=== PATIENT | female | born 1930 | race Caucasian/White ===

== ENCOUNTER 2016-11-27 12:50 | Emergency (ER) | payer OTHER ==
[~2016-11-27] VITALS: Ht 162.6 cm; Wt 69.0 kg
[2016-11-27 13:05] VITALS: TEMP 36.9
[2016-11-27 13:23] VITALS: O2SAT 97
[2016-11-27] MEDS ORDERED: SODIUM CHLORIDE 0.9% 1000ML 1,000 ML IV STA (13:28)
[2016-11-27] MEDS ORDERED: ONDANSETRON INJ 2 MG/ML 2 ML VIAL IV STA (13:28)
[2016-11-27] MEDS ORDERED: SODIUM CHLORIDE 0.9% 500ML 500 ML IV STA ×2 (13:28→14:40)
[2016-11-27 13:47] LABS: BASO % 0.1 %; BASO ABS # 0.01 K/uL (0-0.2); COMPLETE YES; EOS % 0.1 %; HEMATOCRIT 45.4 % (37-47); IG% 0.2 %; LYMPH % 1.7 %; LYMPH ABS # 0.19 K/uL (1.2-3.4); MEAN CELL VOLUME 93.8 fL (80-100); MEAN CORPUSCULAR HGB CONC 34.1 g/dl (32-36); MEAN PLATELET VOLUME 10.6 fL (7.4-10.4); MONO % 2.9 %; PLATELET COUNT 207 K/uL (130-400); RED BLOOD COUNT 4.84 M/uL (4.2-5.4); WHITE BLOOD COUNT 11.41 K/uL (4.8-10.8)
[2016-11-27] MEDS ORDERED: SIMV40TA2 PO (14:06)
[2016-11-27] MEDS ORDERED: ASPI81TA28 PO (14:34)
[2016-11-27] MEDS ORDERED: MULT-190 PO (14:34)
[2016-11-27] MEDS ORDERED: CHOL400T PO (14:34)
[2016-11-27] MEDS ORDERED: METO50TA7 PO (14:34)
[2016-11-27] MEDS ORDERED: MULT-506 PO (14:34)
[2016-11-27] MEDS ORDERED: LUTE40CA2 PO (14:34)
[2016-11-27 14:47] LABS: ALT/SGPT 23 U/L (12-78); BLOOD UREA NITROGEN 25 mg/dl (7-18); BUN/CREATININE RATIO 26.3 (10-20); CALCIUM 8.8 mg/dl (8.5-10.1); CARBON DIOXIDE 24 mmol/L (21-32); CHLORIDE 108 mmol/L (98-107); CREATININE 0.94 mg/dl (0.60-1.20); GLUCOSE 163 mg/dl (70-99); SODIUM 141 mmol/L (136-145)
[2016-11-27 14:51] VITALS: Ht 162.6 cm; Wt 69.0 kg
[2016-11-27 15:03] LABS: ALKALINE PHOSPHATASE 66 U/L (45-117)
[2016-11-27 15:09] LABS: URINE APPEARANCE CLOUDY (CLEAR); URINE BILIRUBIN NEG (NEG); URINE COLOR DK YELLOW; URINE EPITHELIAL CELL AUTO 20-30 /lpf (0-5); URINE NITRITE NEG (NEG); URINE SPECIFIC GRAVITY 1.028 (1.000-1.030); UROBILINOGEN NEG (NEG)
[2016-11-27 15:10] LABS: MANUAL MICROSCOPIC REQUIRED? NO; REVIEW REQ? NO
[2016-11-27 15:34] LABS: POTASSIUM 3.8 mmol/L (3.5-5.1)
[2016-11-27 15:43] LABS: AST/SGOT 19 U/L (15-37); CKMB/CK RATIO 1.6 (0-3.0)
[2016-11-27] MEDS ORDERED: ONDANSETRON HOME PACK 4MG OD TAB PO ONE (16:45)
[2016-11-27 16:56] VITALS: BP 110/60; PULSE 81; O2SAT 96
--- NOTE | 2016-11-27 18:01 | EMERGENCY ROOM VISIT NOTE ---
History Report prepared by Edwardo: Corona Preston Under the Supervision of: Dr. Dilshad Mercado M.D. First contact with patient: 12:55 Chief Complaint: VOMITING Stated Complaint: NAUSEA Nursing Triage Summary: pt reports she had lunch yesterday of shrimp byrne and rice last night during sleep awoke with vomiting, diarrhea, and nausea. last episode at approx 1130 this am. pt reports feeling fine now History of Present Illness The patient is a 85 year old female who presents to the Emergency Room with complaints of persistent nausea, vomiting, diarrhea. She thinks it may have been from her shrimp byrne last night. She woke this morning at 0100 with N/V/ D. She was able to fall asleep but woke again with a total of 10 episodes of vomiting and diarrhea. She feels generally weak. No medications taken. The patient last vomited 1 hour ago. Pt denies LOC, headache, fevers, chills, diaphoresis, visual changes, neck pain, chest pain, breathing difficulties, abdominal pain, back pain, melena, hematochezia, urinary symptoms, numbness, lymphadenopathy, rash, or other complaints. Source of History: patient Onset: 0100 this morning Position: other (GI system ) Timing: other (Persistent ) Modifying Factors (Relieving): other (None) Associated Symptoms: + weakness, No LOC, No abdominal pain, No chills, No diaphoresis, No fevers, No headache, No hematochezia, No lymphadenopathy, No melena, No rash, No urinary symptoms Review of Systems See HPI for pertinent positives and negatives. A total of ten systems were reviewed and were otherwise negative. Past Medical & Surgical Medical Problems: (1) Breast cancer (2) High cholesterol (3) Hypertension Surgical Problems: (1) H/O mastectomy Family History No significant family history Social History Smoking Status: Former Smoker Drug Use: none Marital Status: Housing Status: lives with significant other Occupation Status: retired Current/Historical Medications Scheduled Aspirin (Aspirin Ec), 81 MG PO DAILY Cholecalciferol (Vitamin D), 400 INTER.UNIT PO DAILY Lutein (Cvs Lutein), 20 MG PO DAILY Metoprolol Succ (Toprol Xl) (Toprol-Xl), 50 MG PO DAILY Multivitamin (Multivitamin), 1 TAB PO DAILY Ocuvite Preservision (Ocuvite Preservision), 1 TAB PO DAILY Simvastatin (Zocor), 40 MG PO QPM Allergies Coded Allergies: Amoxicillin (Unverified Allergy, Unknown, HIVES, 11/27/16) Nitrofuran Derivatives (Unverified Allergy, Unknown, UNKNOWN, 11/27/16) Sulfasalazine (Unverified Allergy, Unknown, UNKNOWN, 11/27/16) Physical Exam Vital Signs Date Time Temp Pulse Resp B/P Pulse Ox O2 Delivery O2 Flow Rate FiO2 11/27/16 16:56 81 16 110/60 96 11/27/16 15:20 78 11/27/16 14:47 79 16 125/66 94 11/27/16 14:04 76 18 131/57 97 Room Air 11/27/16 13:23 97 Room Air 11/27/16 13:05 36.9 89 18 143/69 97 Room Air Physical Exam GENERAL: Awake, tired-appearing, in no distress HENT: Dry mucous membranes noted. Normocephalic, atraumatic. . EYES: Normal conjunctiva. Sclera non-icteric. NECK: Supple. No nuchal rigidity. FROM. No JVD. RESPIRATORY: Clear to auscultation. CARDIAC: Regular rate, normal rhythm. Extremities warm and well perfused. Pulses equal. ABDOMEN: Soft, non-distended. No tenderness to palpation. No rebound or guarding. No masses. RECTAL: Deferred. MUSCULOSKELETAL: Chest examination reveals no tenderness. The back is symmetrical on inspection without obvious abnormality. There is no CVA tenderness to palpation. No joint edema. LOWER EXTREMITIES: Calves are equal size bilaterally and non-tender. No edema. No discoloration. NEURO: Normal sensorium. No sensory or motor deficits noted. SKIN: No rash or jaundice noted. Medical Decision & Procedures Laboratory Results 11/27/16 13:20 Red Blood Count 4.84, Mean Corpuscular Volume 93.8, Mean Corpuscular Hemoglobin 32.0, Mean Corpuscular Hemoglobin Concent 34.1, Mean Platelet Volume 10.6, Neutrophils (%) (Auto) 95.0, Lymphocytes (%) (Auto) 1.7, Monocytes (%) (Auto) 2.9, Eosinophils (%) (Auto) 0.1, Basophils (%) (Auto) 0.1, Neutrophils # (Auto) 10.85, Lymphocytes # (Auto) 0.19, Monocytes # (Auto) 0.33, Eosinophils # (Auto) 0.01, Basophils # (Auto) 0.01 11/27/16 13:20 11/27/16 15:10 Test 11/27/16 13:20 11/27/16 14:47 11/27/16 15:10 White Blood Count 11.41 K/uL (4.8-10.8) Red Blood Count 4.84 M/uL (4.2-5.4) Hemoglobin 15.5 g/dL (12.0-16.0) Hematocrit 45.4 % (37-47) Mean Corpuscular Volume 93.8 fL (80-100) Mean Corpuscular Hemoglobin 32.0 pg (25-34) Mean Corpuscular Hemoglobin Concent 34.1 g/dl (32-36) Platelet Count 207 K/uL (130-400) Mean Platelet Volume 10.6 fL (7.4-10.4) Neutrophils (%) (Auto) 95.0 % Lymphocytes (%) (Auto) 1.7 % Monocytes (%) (Auto) 2.9 % Eosinophils (%) (Auto) 0.1 % Basophils (%) (Auto) 0.1 % Neutrophils # (Auto) 10.85 K/uL (1.4-6.5) Lymphocytes # (Auto) 0.19 K/uL (1.2-3.4) Monocytes # (Auto) 0.33 K/uL (0.11-0.59) Eosinophils # (Auto) 0.01 K/uL (0-0.5) Basophils # (Auto) 0.01 K/uL (0-0.2) RDW Standard Deviation 47.2 fL (36.4-46.3) RDW Coefficient of Variation 13.7 % (11.5-14.5) Immature Granulocyte % (Auto) 0.2 % Immature Granulocyte # (Auto) 0.02 K/uL (0.00-0.02) Anion Gap 9.0 mmol/L (3-11) Est Creatinine Clear Calc Drug Dose 41.7 ml/min Estimated GFR () 64.1 Estimated GFR (Non- 55.3 BUN/Creatinine Ratio 26.3 (10-20) Calcium Level 8.8 mg/dl (8.5-10.1) Total Bilirubin 0.6 mg/dl (0.2-1) Alanine Aminotransferase (ALT/SGPT) 23 U/L (12-78) Alkaline Phosphatase 66 U/L (45-117) Troponin I < 0.015 ng/ml (0-0.045) Total Protein 7.9 gm/dl (6.4-8.2) Albumin 4.0 gm/dl (3.4-5.0) Lipase 172 U/L (73-393) Thyroid Stimulating Hormone (TSH) 1.650 uIu/ml (0.300-4.500) Urine Color DK YELLOW Urine Appearance CLOUDY (CLEAR) Urine pH 5.0 (4.5-7.5) Urine Specific [place] 1.028 (1.000-1.030) Urine Protein NEG (NEG) Urine Glucose (UA) NEG (NEG) Urine Ketones 2+ (NEG) Urine Occult Blood NEG (NEG) Urine Nitrite NEG (NEG) Urine Bilirubin NEG (NEG) Urine Urobilinogen NEG (NEG) Urine Leukocyte Esterase NEG (NEG) Urine WBC (Auto) 1-5 /hpf (0-5) Urine RBC (Auto) 5-10 /hpf (0-4) Urine Hyaline Casts (Auto) 1-5 /lpf (0-5) Urine Epithelial Cells (Auto) 20-30 /lpf (0-5) Urine Bacteria (Auto) NEG (NEG) Magnesium Level 2.0 mg/dl (1.8-2.4) Direct Bilirubin < 0.1 mg/dl (0-0.2) Aspartate Amino Transf (AST/SGOT) 19 U/L (15-37) Total Creatine Kinase 64 U/L (26-192) Creatine Kinase MB 1.0 ng/ml (0.5-3.6) Creatine Kinase MB Ratio 1.6 (0-3.0) Laboratory results reviewed by me Medications Administered Medications (Trade) Dose Ordered Sig/Darwin Route Start Time Stop Time Status Last Admin Dose Admin Sodium Chloride 500 ml @ 999 mls/hr Q31M STAT IV 11/27/16 13:28 11/27/16 13:58 DC 11/27/16 13:43 999 MLS/HR Sodium Chloride (Nss 1000ml) 1,000 ml @ 125 mls/hr Q8H STAT IV 11/27/16 13:28 11/27/16 17:18 DC 11/27/16 15:09 125 MLS/HR Ondansetron HCl 4 mg 4 mg NOW STAT IV 11/27/16 13:28 11/27/16 13:29 DC 11/27/16 13:43 4 MG Sodium Chloride (Nss 500ml) 500 ml @ 999 mls/hr Q31M STAT IV 11/27/16 14:40 11/27/16 15:16 DC 11/27/16 15:09 999 MLS/HR Ondansetron HCl (ZOFRAN ODT 4MG Home Pack) 1 homepack UD ONCE PO 11/27/16 16:45 11/27/16 16:46 DC 11/27/16 16:48 1 HOMEPACK ECG Indication: vomiting Rate (beats per minute): 75 Rhythm: normal sinus Findings: T-wave inversion (Anterolateral), left axis deviation Comparison ECG Date: August 2013 and August 2014 Change: Anterolateral T wave inversion new. ED Course 1324: The patient was evaluated in room A11. A complete history and physical exam was performed. 1328: Ordered Zofran Injection 4 mg IV, Sodium Chloride 1,000 ml @ 125 mls/hr IV , Sodium Chloride 500 ml @ 999 mls/hr IV. 1440: Ordered Sodium Chloride 500 ml @ 999 mls/hr IV. 1441: Upon reevaluation, the patient is feeling a little better. 1632: I discussed the patient's case with Dr. Maldonado (Cardiology). He recommends the patient follow up with [facility] Cardiology in the office. 1636: Upon reevaluation, the patient feels much better. Discussed results and discharge instructions: She verbalized understanding and agreement. The patient is ready for discharge. She will follow up with [facility] cardiology. 1645: Ordered Ondansetron HCL 1 homepack PO. Medical Decision Triage Nursing notes reviewed. The patient's presentation and history were concerning for nausea, vomiting, and diarrhea. Etiologies such as gastroenteritis, food borne illness, infections, obstruction , pancreatitis, appendicitis, diverticulitis, inflammatory bowel disease, GI bleed, biliary pathology, toxicologic as well as others were entertained. The patient was evaluated. She was doing very well. She seemed mildly dehydrated. She had no chest or abdominal pain. The patient had blood work obtained. Her CBC revealed a leukocytosis of 11.4. Urinalysis, cardiac markers , chemistry panel, and TSH were normal. She was treated with Zofran and normal saline. She was given oral fluids. She did exceptionally well with this. Her ECG did reveal T-wave inversions. The patient was evaluated again and she had no chest symptoms. She had no abdominal pain. She felt exceptionally well and desired to be discharged. I did discuss the case with Dr. Maldonado cardiology. Since she is asymptomatic and her blood work is unremarkable he will have her seen in the office for further evaluation. She is supposed to call the office the day after tomorrow, Tuesday. The patient felt very comfortable with this plan. She was given a Zofran home pack. If she has any recurrent symptoms or any chest type symptoms the patient will come back to emergency department for reevaluation. By the evaluation outlined above other emergent etiologies such as those listed in the differential, as well as others, were deemed relatively unlikely. The patient and was informed about the findings as listed above. All questions were answered and they were pleased with the treatment. Return instructions were outlined and the patient was discharged in stable condition. The patient was referred to cardiology for follow-up this week for a recheck of the current condition. The chart was completed utilizing [employer] voice recognition software. Grammatical errors, random word insertions, pronoun errors, and incomplete sentences are an occasional consequence of this system due to software limitations, ambient noise, and hardware issues. Any formal questions or concerns about the content, text, or information contained within the body of this dictation should be directly addressed to the physician for clarification. Consults Time Called: 1630 Consulting Physician: Dr. Maldonado (Cardiology) Returned Call: 1632 I discussed the patient's case with Dr. Maldonado (Cardiology). He recommends the patient follow up with [facility] Cardiology in the office. Impression Primary Impression: Nausea, vomiting, and diarrhea Additional Impression: Electrocardiogram abnormal Scribe Attestation The scribe's documentation has been prepared under my direction and personally reviewed by me in its entirety. I confirm that the note above accurately reflects all work, treatment, procedures, and medical decision making performed by me. Departure Information Dispostion Home / Self-Care Forms HOME CARE DOCUMENTATION FORM, IMPORTANT VISIT INFORMATION Patient Instructions My [facility] Additional Instructions Zofran(odansetron) tablets 4mg: Take one and allow it to dissolve in your mouth every four to six hours as needed for nausea or vomiting. Acetaminophen(Tylenol) may be used for fever or pain. Use 1000mg every six hours as needed. Avoid using more than 4000mg in a 24 hour period. Rest and drink plenty of fluids as tolerated. Slow sips of water or sports drinks are recommended instead of large amounts all at once. Continue current medications. Once your stomach is settled start with a clear liquid diet (jello, soup broth, etc.) and then advance as tolerated. You should avoid full, heavy meals for about 24 hrs from the time your symptoms resolved. Return to the ER for persistent vomiting, fevers, abdominal pain, chest pains, difficulty breathing, black or bloody stools, worsening of your condition, or as needed. Call [facility] cardiology on Tuesday for a follow-up visit. Tell them you were in the Emergency Room and Dr. Maldonado was aware and wants you to be seen. Your ECG was changed compared to 2014. Follow up with your primary physician next week for a recheck of your current condition Problem Qualifiers
== END 2016-11-27 16:58 | disposition home or self-care (01) ==
LOC: EDBD 12:50 → C.EDA 12:51
DX: R11.2 Nausea with vomiting, unspecified (principal); R19.7 Diarrhea, unspecified; R94.31 Abnormal electrocardiogram [ECG] [EKG]; E78.00 Pure hypercholesterolemia, unspecified; I10 Essential (primary) hypertension; Z79.82 Long term (current) use of aspirin; Z90.10 Acquired absence of unspecified breast and nipple; Z85.3 Personal history of malignant neoplasm of breast; Z87.891 Personal history of nicotine dependence; Z79.899 Other long term (current) drug therapy

== ENCOUNTER 2017-09-19 18:08 | Emergency (ER) | payer OTHER ==
[~2017-09-19] VITALS: Ht 165.1 cm; Wt 74.9 kg
[~2017-09-19 18:08] MED LIST: ASPI81TA28 PO; CHOL400T PO; LUTE40CA2 PO; METO50TA7 PO; MULT-190 PO; MULT-506 PO; SIMV40TA2 PO
[2017-09-19 18:16] VITALS: TEMP 36.7; Ht 165.1 cm; Wt 74.9 kg
[2017-09-19] MEDS ORDERED: LIDOCAINE/EPINEPH/TETRACAINE 1 EA SYR EXT STA (18:24)
--- NOTE | 2017-09-19 18:58 | DIAGNOSTIC IMAGING REPORT ---
CT HEAD WITHOUT CONTRAST (CT) CLINICAL HISTORY: Head pain status post trauma COMPARISON STUDY: No previous studies for comparison. TECHNIQUE: Axial CT of the brain is performed from the vertex to the skull base. IV contrast was not administered for this examination. A dose lowering technique was utilized adhering to the principles of ALARA. CT DOSE: 888.19 mGy.cm FINDINGS: No intra or extra-axial mass lesions are visualized. There is no CT evidence of acute cortical infarction. There is no evidence of midline shift. There is no acute hemorrhage. No calvarial fractures are visualized. There are patchy white matter hypodensities likely on a small vessel basis. There is mild ventricular dilatation, likely secondary to volume loss There is no evidence of acute sinusitis. There is a suspected left parietal scalp laceration. IMPRESSION: No acute intracranial findings Electronically signed by: Elvis Rodriguez M.D. 09/19/2017 6:57 PM Dictated Date/Time: 09/19/2017 6:56 PM
--- NOTE | 2017-09-19 19:00 | DIAGNOSTIC IMAGING REPORT ---
CT OF THE CERVICAL SPINE CLINICAL HISTORY: Neck pain status post trauma COMPARISON STUDY: No previous studies for comparison. CT DOSE: TECHNIQUE: CT scan of the cervical spine was performed from the skull base to the thoracic inlet. Images are reviewed in the axial, sagittal, and coronal planes. IV contrast was not administered for this examination. A dose lowering technique was utilized adhering to the principles of ALARA. FINDINGS: The visualized portions of the lung apices reveal no evidence of pneumothorax. The prevertebral soft tissues are normal. No fractures or subluxations are visualized. There is straightening of normal cervical lordosis. There are advanced multilevel degenerative changes. IMPRESSION: No evidence of acute fracture or traumatic subluxation. Electronically signed by: Elvis Rodriguez M.D. 09/19/2017 6:59 PM Dictated Date/Time: 09/19/2017 6:57 PM
[2017-09-19 19:46] VITALS: BP 132/63; PULSE 73; O2SAT 96
--- NOTE | 2017-09-19 19:47 | EMERGENCY ROOM VISIT NOTE ---
ED Visit Note Patient was seen and evaluated by Dr. Arias. I was asked to perform primary wound closure. LET gel was applied. Once proper anesthetization was established , the wound was further examined and demonstrated no deep involvement. The wound was copiously irrigated with normal saline. The wound was closed using 4 isadora with the wound edges being well approximated. Patient tolerated the procedure well. No complications were met. The wound was cleansed and dressed with a Bacitracin dressing. Patient educated on worrisome symptoms for return visit to the Emergency Department. Closure length: 1.5 cm
--- NOTE | 2017-09-19 22:50 | EMERGENCY ROOM VISIT NOTE ---
History Report prepared by Edwardo: Don Cottrell Under the Supervision of: Nubia PadronO. First contact with patient: 18:11 Chief Complaint: FALL Stated Complaint: FALL History of Present Illness The patient is an 86 year old female who presents to the Emergency Room with complaints of a sudden fall occurring around 1730 tonight. The patient states that she was packing a suitcase and turned around and tripped on it. She states that she fell sideways and hit the left side of her head. She denies any loss of consciousness, and she states that she remembers the event. The patient denies any neck pain, headache, chest pain, shortness of breath, leg pain, and arm pain. She states that she was able to walk afterwards. The patient takes 81mg of aspirin daily. Source of History: patient Onset: 1730 tonight Position: other (global) Quality: other (fall) Timing: other (sudden) Associated Symptoms: No headache, No neck pain, No chest pain, No SOB Review of Systems See HPI for pertinent positives & negatives. A total of 10 systems reviewed and were otherwise negative. Past Medical & Surgical Medical Problems: (1) Breast cancer (2) High cholesterol (3) Hypertension Surgical Problems: (1) H/O mastectomy Family History No significant family history Social History Smoking Status: Former Smoker Drug Use: none Marital Status: Housing Status: lives with significant other Occupation Status: retired Current/Historical Medications Scheduled Aspirin (Aspirin Ec), 81 MG PO DAILY Cholecalciferol (Vitamin D), 400 INTER.UNIT PO DAILY Lutein ([facility]vs Lutein), 20 MG PO DAILY Metoprolol Succ (Toprol Xl) (Toprol-Xl), 50 MG PO DAILY Multivitamin (Multivitamin), 1 TAB PO DAILY Ocuvite Preservision (Ocuvite Preservision), 1 TAB PO DAILY Simvastatin (Zocor), 40 MG PO QPM Allergies Coded Allergies: Amoxicillin (Unverified Allergy, Unknown, HIVES, 11/27/16) Nitrofuran Derivatives (Unverified Allergy, Unknown, UNKNOWN, 11/27/16) Sulfasalazine (Unverified Allergy, Unknown, UNKNOWN, 11/27/16) Physical Exam Vital Signs Date Time Temp Pulse Resp B/P (MAP) Pulse Ox O2 Delivery O2 Flow Rate FiO2 09/19/17 19:46 73 15 132/63 96 09/19/17 18:16 36.7 78 20 156/82 98 Room Air Physical Exam GENERAL: alert, well appearing, well nourished, no distress, non-toxic HEAD: normal cephalic, 2cm laceration on the left parietal EYE EXAM: normal conjunctiva, PERRL and EOM's grossly intact OROPHARYNX: no exudate, no erythema, lips, buccal mucosa, and tongue normal and mucous membranes are moist EARS: TMs clear b/l NECK: supple, no nuchal rigidity, no adenopathy, non-tender CHEST: stable to compression anteriorly and posteriorly LUNGS: clear to auscultation. Normal chest wall mechanics HEART: no murmurs, S1 normal and S2 normal ABDOMEN: abdomen soft, non-tender, normo-active bowel sounds, no masses, no rebound or guarding. PELVIS: stable to compression anteriorly and posteriorly BACK: Back is symmetrical on inspection and there is no deformity, no midline tenderness, no CVA tenderness. UPPER EXTREMITIES: full active and passive range of motion of all joints without tenderness to palpation LOWER EXTREMITIES: full active and passive range of motion of all joints without tenderness to palpation NEURO EXAM: Normal sensorium, cranial nerves II-XII grossly intact, normal speech, no gross weakness of arms, no gross weakness of legs. GCS: 15. Medical Decision & Procedures ER Provider Diagnostic Interpretation: Radiology results as stated below per my review and the radiologist's interpretation: CT HEAD WITHOUT CONTRAST (CT) CLINICAL HISTORY: Head pain status post trauma COMPARISON STUDY: No previous studies for comparison. TECHNIQUE: Axial CT of the brain is performed from the vertex to the skull base. IV contrast was not administered for this examination. A dose lowering technique was utilized adhering to the principles of ALARA. CT DOSE: 888.19 mGy.cm FINDINGS: No intra or extra-axial mass lesions are visualized. There is no CT evidence of acute cortical infarction. There is no evidence of midline shift. There is no acute hemorrhage. No calvarial fractures are visualized. There are patchy white matter hypodensities likely on a small vessel basis. There is mild ventricular dilatation, likely secondary to volume loss There is no evidence of acute sinusitis. There is a suspected left parietal scalp laceration. IMPRESSION: No acute intracranial findings Electronically signed by: Elvis Rodriguez M.D. 09/19/2017 6:57 PM Dictated Date/Time: 09/19/2017 6:[address] OF THE CERVICAL SPINE CLINICAL HISTORY: Neck pain status post trauma COMPARISON STUDY: No previous studies for comparison. CT DOSE: TECHNIQUE: CT scan of the cervical spine was performed from the skull base to the thoracic inlet. Images are reviewed in the axial, sagittal, and coronal planes. IV contrast was not administered for this examination. A dose lowering technique was utilized adhering to the principles of ALARA. FINDINGS: The visualized portions of the lung apices reveal no evidence of pneumothorax. The prevertebral soft tissues are normal. No fractures or subluxations are visualized. There is straightening of normal cervical lordosis. There are advanced multilevel degenerative changes. IMPRESSION: No evidence of acute fracture or traumatic subluxation. Electronically signed by: Elvis Rodriguez M.D. 09/19/2017 6:59 PM Dictated Date/Time: 09/19/2017 6:57 PM Medications Administered Medications (Trade) Dose Ordered Sig/Darwin Route Start Time Stop Time Status Last Admin Dose Admin Tetracaine/ Epinephrine/ Lidocaine (L.e.t. Gel 4%/ 1:100/0.5%) 1 ea NOW STAT EXT 09/19/17 18:24 09/19/17 18:25 DC 09/19/17 18:24 1 EA ED Course ED COURSE: Vital signs were reviewed and showed situational hypertension The patients medical record was reviewed The above diagnostic studies were performed and reviewed. ED treatments and interventions as stated above. 1811: The patient was evaluated in room C1. A complete history and physical examination was performed. 1824: LET Gel 4%/ 1:100/ 0.5% EXT 1907: I reevaluated the patient, and she was doing well. 3: Upon reevaluation, the patient is doing well.I discussed my findings with the patient and she understands and agrees with the treatment plan. Based on the patients age, coexisting illnesses, exam and lab findings the decision to treat as an outpatient was made. The patient remained stable while under my care. The patient appeared well at the time of discharge. Medical Decision Differential diagnoses include major intracranial, cervical, spinal, thoracic, abdominal, pelvic and neurologic injury. Fracture, contusion, sprain, strain, laceration, abrasions included as well. Patient is an 86-year-old female who presents to ER status post mechanical fall tripping over her suitcase and hitting the left side of her head. She has no other complaints. Completely neurologically intact. No blood thinners. CT head and cervical spine were negative. Patient was completely neurologically intact again at this point. Tetanus was previously updated. 4 isadora placed by my PA. Patient was updated bedside and discharged follow-up with PCP as an outpatient and have isadora removed in 10 days. Discussed with Pt concerning signs and symptoms to watch out for. Pt was instructed to follow up with their PCP and discussed with the patient their option to return to the ED at anytime for persistent or worsening symptoms. The appropriate anticipatory guidance and out-patient management, including indications for return to the emergency department, were explained at length to the patient and understood. Medication Reconcilliation Current Medication List: was personally reviewed by me Blood Pressure Screening Patient's blood pressure: Elevated blood pressure Blood pressure disposition: Elevated BP felt to be situational Impression Primary Impression: Fall Additional Impression: Laceration of head Scribe Attestation The scribe's documentation has been prepared under my direction and personally reviewed by me in its entirety. I confirm that the note above accurately reflects all work, treatment, procedures, and medical decision making performed by me. Departure Information Dispostion Home / Self-Care Referrals Franky Campoverde MD (PCP) Forms HOME CARE DOCUMENTATION FORM, IMPORTANT VISIT INFORMATION Patient Instructions ED Laceration Scalp Stitch Or Stap, My CATASYS Additional Instructions Please follow up with your primary care doctor with in the next 24 hours. Any worsening of your symptoms, please return to the ED immediately. This includes any fevers greater than 100.4, worsening pain, redness around suture site, purulent discharge from suture site, worsening headaches, neck pain, change in vision, tingling or numbness in the upper extremities, Or any other concerning signs or symptoms from your standpoint. Please take Tylenol or Motrin as needed for pain. Please keep the wound clean and dry. No soaking. These have isadora removed within the next 10 days. Problem Qualifiers Primary Impression: Fall Encounter type: initial encounter Qualified Codes: W19.XXXA - Unspecified fall, initial encounter Additional Impression: Laceration of head Encounter type: initial encounter Location of open wound of head: unspecified part of head Foreign body presence: without foreign body Qualified Codes: S01.91XA - Laceration without foreign body of unspecified part of head, initial encounter
== END 2017-09-19 19:47 | disposition home or self-care (01) ==
LOC: EDBD 18:08 → C.EDC 18:10
DX: S01.91XA Laceration without foreign body of unspecified part of head, initial encounter (principal); W01.0XXA Fall on same level from slipping, tripping and stumbling without subsequent striking against object, initial encounter; R40.2412 Glasgow coma scale score 13-15, at arrival to emergency department; I10 Essential (primary) hypertension; Z87.891 Personal history of nicotine dependence; Z79.82 Long term (current) use of aspirin; Z88.1 Allergy status to other antibiotic agents; Z88.8 Allergy status to other drugs, medicaments and biological substances